=== PATIENT | male | born 1995 | race Caucasian/White ===

== ENCOUNTER 2021-07-07 22:15 | Emergency (ER) | payer OTHER ==
--- NOTE | 2021-07-07 22:27 | ED Physician Documentation ---
PD HPI UPPER EXT INJURY - Stated complaint Stated Complaint: RT THUMB LAC - Chief complaint Chief Complaint: Laceration - History obtained from History obtained from: Patient - History of Present Illness Location: Right, Finger (thumb) Type of injury: Laceration Where injury occurred: Home Timing - onset: How many minutes ago (40), Today Timing - details: Abrupt onset Associated symptoms: No: Weakness, Numbness Similar symptoms before: Has not had sx before Recently seen: Not recently seen - Additonal information Additional information: sustained right thumb laceration approximately 40 minutes [employer] on edge of knife while washing dishes. He is right hand dominant. He is UTD on tetanus. Review of Systems Skin: reports: Laceration (s) Neurologic: denies: Focal weakness, Numbness PD PAST MEDICAL HISTORY - Past Medical History Past Medical History: No - Past Surgical History Past Surgical History: Yes Ortho: ACL reconstruction, Arthroscopic surgery - Present Medications Home Medications: Ambulatory Orders Medication Instructions Recorded Confirmed No Known Home Medications 07/07/21 07/07/21 - Allergies Allergies/Adverse Reactions: Allergies Allergy/AdvReac Type Severity Reaction Status Date / Time No Known Drug Allergies Allergy Verified 07/07/21 22:19 - Social History Does the pt smoke?: No Smoking Status: Never smoker Does the pt drink ETOH?: Yes Does the pt have substance abuse?: No - Immunizations Immunizations are current?: Yes PD ED PE NORMAL - Vitals Vital signs reviewed: Yes - General General: Alert and oriented X 3, No acute distress, Well developed/nourished - Neuro Neuro: No motor deficit, No sensory deficit PD ED PE EXPANDED - Extremities SADIA UE/Hands Visual: 1 - laceration (laceration is bevelled and "U"-shaped) Results - Vitals Vitals: Vital Signs - 24 hr 07/07/21 07/07/21 22:19 23:00 Temperature 36.5 C 36.5 C Heart Rate 62 61 Respiratory 16 16 Rate Blood Pressure 136/79 H 135/68 H O2 Saturation 99 100 Oxygen O2 Source Room air Procedures - Laceration (location) Finger right Length in cm: 1.5 Wound type: Curved, Flap, Into subcut fat Neurovascular status: Sensory intact, Motor intact, Vascular intact Skin layer closure: Dermabond, Steri strips Other: Patient tolerated well, No complications, Neurovascular intact, Tetanus UTD PD MEDICAL DECISION MAKING - ED course Complexity details: considered differential, d/w patient Departure - Departure Disposition: 01 Home, Self Care Clinical Impression: Laceration Condition: Good Instructions: ED Laceration Ext Skin Glue Comments: The glue and steri-strips should fall off within one week. If they are still in place after one week, follow up with your primary care provider for recheck of the wound. Discharge Date/Time: 07/07/21 23:00
[2021-07-07 23:01] VITALS: BP 135/68
== END 2021-07-07 23:00 | disposition home or self-care (01) ==
LOC: ED 22:15
DX: S61.011A Laceration without foreign body of right thumb without damage to nail, initial encounter (principal); W26.0XXA Contact with knife, initial encounter; Y93.G1 Activity, food preparation and clean up; Y92.009 Unspecified place in unspecified non-institutional (private) residence as the place of occurrence of the external cause
CPT/HCPCS: 12001; 99281